=== PATIENT | female | born 1985 | race Hispanic/Latino ===

== ENCOUNTER 2020-12-15 03:31 | Inpatient (IN) | payer MEDICAID, OTHER ==
[2020-12-15] MEDS ORDERED: hydrALAZINE 20 MG/ML VIAL SLOW IVP PRN ×2 (04:02→11:45)
--- NOTE | 2020-12-15 04:02 | PDOC.FPROB ---
FMR OB H&P: HPI - History of Present Illness Chief Complaint: contractions History of Present Illness: 35yo @ 38.5wks who presents with contractions. She states the contractions began around 10pm last night and had increased in intensity and frequency, occurring q3-5min. Denies LOF, vaginal bleeding/discharge/pain. +FM. She is a patient at [facility] and has regular follow up. She was told that her baby was measuring large for age at last ultrasound appointment 3 weeks ago. Primary Care Physician: [facility] FMR OB H&P: Current - Care : 5 Para: 3013 Gestational age: 38.5 Due date: 12/24/20 Course/Complications: none FMR OB H&P: History - Past Medical History PMH: none - OB History OB History: 3 term , hx of macrosomia x2 1 spont ab in Sep 2019 - Surgical History Sx History: none - Social History Social History: no T/A/D - Family History Family History: maternal grandmother- HTN FMR OB H&P: ROS - Review of Systems General: denies: fever/chills, weight/appetite/sleep changes Eyes: denies: vision changes, scotomas ENT: denies: nasal congestion, rhinorrhea Cardiovascular: denies: chest pain, edema Gastrointestinal: denies: nausea, vomiting, diarrhea Genitourinary (Female): reports: contractions. denies: dysuria, vaginal discharge, vaginal bleeding Musculoskeletal: denies: pain Neurologic: denies: syncope, headache Integumentary: denies: itching, rash Hematologic/Lymphatic: denies: prolonged or excessive bleeding FMR OB H&P: Vital Signs - Maternal Vital signs: 138/91, HR 96 - Heart Tones Baseline: 150 Variability: moderate Acceleration: absent Deceleration: absent Category: category 1 [place] contractions every: 5min FMR OB H&P: Physical Exam - Physical Exam General: NAD, awake, alert and oriented HEENT: normocephalic and atraumatic, grossly normal vision, grossly normal hearing Neck: supple, FROM, trachea midline Heart: RRR, normal S1/S2, no murmurs/rubs/gallops, pulses present, no edema General: CTAB, no respiratory distress Abdomen: soft, gravid, non-tender Musculoskeletal: normal gait and station, FROM in all four extremities, no atrophy Neurological: no focal deficit Skin: no rash, capillary refill <2 seconds Lymphatic: no unusual bruising or bleeding Psychiatric: intact recent and remote memory, good judgement and insight, normal mood and affect - Pelvic Exam SVE: FMR OB H&P: A/P Discussion: Date/Time: 12/15/20 0402 35yo @ 38.5wks presents with contractions #Labor #sIUP -FHT: Cat 1, 150/mod kenyon. Ctx q5min -SVE -BP 138/91, no hx of pre-E or gHTN according to pt but records not available at this time -due to elevated BP and AMA will admit -will recheck in 2 hours and decide if can start pitocin -pt is resistant to being induced but after discussion with Dr Mccloud, she agreed with plan #hx of macrosomiax2 -no hx of GDM -pending US for EFW and presentation #AMA -aware PCP: PNC Dispo: admit to L&D, pending US This H&P was discussed with Dr. Mccloud who agrees with the above documentation and plan.
[2020-12-15] MEDS ORDERED: Misoprostol 200 MCG TAB PR PRN (04:34)
[2020-12-15] MEDS ORDERED: Ibuprofen 800 MG TAB PO PRN ×2 (04:34→21:14)
[2020-12-15] MEDS ORDERED: Lidocaine 1% (PF) 30 ML VIAL SC PRN (04:34)
[2020-12-15] MEDS ORDERED: Butorphanol Tartrate 1 MG/ML VIAL SLOW IVP PRN (04:34)
[2020-12-15] MEDS ORDERED: Carboprost 250 MCG/ML AMP IM PRN (04:34)
[2020-12-15] MEDS ORDERED: Acetaminophen 500 MG TAB PO PRN ×2 (04:34→21:14)
[2020-12-15] MEDS ORDERED: Methylergonovine 0.2 MG/ML VIAL IM PRN (04:34)
[2020-12-15] MEDS ORDERED: Ondansetron PF 4 MG/2 ML Vial IVP PRN (04:34)
[2020-12-15] MEDS ORDERED: Lactated Ringer's 1,000 ML IV SCH (04:45)
--- NOTE | 2020-12-15 05:04 | HP ---
TIME: 0425 hours. LOCATION: Labor and Delivery Triage. The patient of the clinic. The patient first seen by Lalitha Hernandez, who is a resident blocking machine operator second. CHIEF COMPLAINT: Possible contractions at 38 weeks and 5 days. HISTORY OF PRESENT ILLNESS: This is a 35-year-old, G5, P3-0-1-3 at 38 weeks and 5 days with a complaint of irregular contractions since around 10:00 p.m. She has contractions about every 3 to 5 minutes, but denies any vaginal bleeding or leakage of fluid. She has good movement. She denies any complications; although, she does state that her past pregnancies had large babies without any complication and she denies any history of gestational diabetes. REVIEW OF SYSTEMS: Complete review of systems was checked and is otherwise negative unless specified in the HPI. GENERAL: No fever. No chills. PULMONARY: No shortness of breath. CARDIOVASCULAR: No chest pain. EXTREMITIES: No unusual leg swelling or calf pain. PAST MEDICAL HISTORY: Negative. MEDICATIONS: vitamins. ALLERGIES: NONE. PAST SURGICAL HISTORY: None. OB HISTORY: She has a history of term vaginal deliveries with some babies being macrosomic, but no problem with deliveries. She denies gestational diabetes then or now. SOCIAL HISTORY: Negative for alcohol, tobacco, or drug use. PHYSICAL EXAMINATION: VITAL SIGNS: Reviewed and reveal respirations 18 that are unlabored, blood pressure is 138/91, and heart rate 96. GENERAL: She is in no acute distress. ABDOMEN: Soft and nontender and size consistent with dates. Cervical exam is 2 cm, 50% effaced, -3 station. Bag of water is intact. monitor, heart tones show a baseline of 150 with moderate variability. Contractions are about every 5 minutes on tocodynamometer. ASSESSMENT: This is a 35-year-old (advanced maternal age) multigravida with a history of macrosomia at early term at 38 weeks and 5 days. Her first blood pressure was 138/91. PLAN: 1. 38 weeks and 5 days with elevated blood pressure, we will keep an augment if necessary. 2. Check PIH labs. 3. History of large babies without dystocia history. 4. Case reviewed with Lalitha Hernandez. 5. The patient seen at bedside. Job ID: [id number]
[2020-12-15 05:21] VITALS: BMI 32.0
--- NOTE | 2020-12-15 05:59 | PDOC.BPN ---
- Brief Progress Note Pt is refusing blood work. We are attempting to work her up for possible pre- eclampsia. She is also refusing IVF and any induction agents. The plan is to recheck her at 0630 to see if she has made any change. I discussed with her the possibility that if there is no change we would move forward with the induction. Both Dr Mccloud and myself explained to her why we would recommend her staying and being induced. She voices understanding and says she is willing to stay but then says she is not willing to allow induction agents. After lengthy discussion, she says she will think about it and make her decision when she is checked at 0630 on whether or not she will stay.
[2020-12-15] MEDS ORDERED: NS w/ Oxytocin 30 units 500 ML IV PRN (06:07)
[2020-12-15 07:26] LABS: Creatinine, Urine 69.3 mg/dL (47-110)
--- NOTE | 2020-12-15 07:49 | ULT ---
ULTRASOUND OBSTETRICAL COMPLETE: DATE: 12/15/2020 HISTORY: 35-year-old female in third trimester experiencing labor contractions. Requested informatio n: presentation and estimated weight. FINDINGS: Maternal adnexa: Not visualized number: shin lie: Vertex Maternal cervix: Obscured. Placenta: Anterior. No placenta previa. Amniotic fluid volume: JULISA = 17cm heart rate: 157 bpm anatomy not evaluated biometry: Biparietal diameter (BPD): 9.0 cm 36 w 2 d Head circumference (HC): 33.3 cm 38 w 0 d Abdominal circumference (AC): 36.7 cm 40 w 4 d Femur length (FL): 7.4 cm 38 w 0 d Average ultrasound age (AUA): 38 w 2 d Estimated date of delivery (FABIOLA): 12/27/2020 Estimated weight (EFW): 3707 g +/- 549 g IMPRESSION: 1) Live 3rd trimester intrauterine gestation. 2) Estimated gestational age of 38 weeks, 2 days 3) Vertex lie.
[2020-12-15 08:00] LABS: #Eosinphils 0.1 thou/uL (0.0-0.7); #Lymphocytes 1.4 thou/uL (1.20-3.40); #Monocytes 0.5 thou/uL (0.11-0.59); %Basophils 0.2 % (0.0-1.0); %Eosinophils 1.2 % (0.0-10.0); %Lymphocytes 14.2 % (21.0-51.0); %Monocytes 5.4 % (0.0-10.0); Hemoglobin 10.9 g/dL (12.0-16.0); Mean Corpuscular HGB CONC 32.4 g/dL (32.0-36.0); Mean Corpuscular Hemoglobin 25.4 pg (27.0-31.0); Mean Corpuscular Volume 78.2 fL (78.0-98.0); Mean Platelet Volume 8.7 fL (7.4-10.4); Platelet Count 328 thou/uL (130-400); RBC Distribution Width 14.7 % (11.5-14.5); Red Blood Cell (RBC) Count 4.31 mill/uL (4.20-5.40); White Blood Cell (WBC) Count 10.2 thou/uL (4.8-10.8)
[2020-12-15 08:23] LABS: ALT (SGPT) 10 U/L (8-55); AST (SGOT) 19 U/L (5-34); Albumin 3.3 g/dL (3.5-5.0); Alkaline Phosphatase 308 U/L (40-110); Anion Gap 14 mmol/L (10-20); BUN (Urea Nitrogen) 8 mg/dL (7.0-18.7); Bilirubin, Total 0.3 mg/dL (0.2-1.2); Calc. Creatinine Clearance 179 mL/min (70-130); Calcium 8.5 mg/dL (7.8-10.44); Carbon Dioxide 19 mmol/L (22-29); Chloride 107 mmol/L (98-107); Globulin 4.2 g/dL (2.4-3.5); Glucose 95 mg/dL (70-105); Potassium 4.1 mmol/L (3.5-5.1); Protein, Total 7.5 g/dL (6.0-8.3); Sodium 136 mmol/L (136-145)
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
[2020-12-15 08:41] LABS: Syphilis Antibody Nonreactive (Nonreactive); Syphilis Antibody Index 0.03 S/CO (<1.00 Non-Reactive)
[2020-12-15 08:42] LABS: HBSAg Index 0.19 S/CO (0-0.99); Hep B Surf Ag Non-Reactive S/CO (NonReactive)
[2020-12-15] MEDS ORDERED: Oxytocin 10 UNITS/ML VIAL ONE (09:20)
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
--- NOTE | 2020-12-15 11:28 | PDOC.OPDEL ---
OB Operative/Delivery Note Delivery Dr/Surgeon: Sujata Pre-Delivery Diagnosis: active labor Procedure/Post Delivery Dx: spontaneous vaginal delivery Anesthesia: none - Additional Findings/Plan Compilations/Other Findings: Delivering Physician: Sujata Attending: Mehnaz Procedure: Spontaneous Vaginal Delivery Anesthesia: Local for Repair QBL: 350 ml Pre-op Diagnosis: 1. Term intrauterine in labor 2. Hx of macrosomia 3. AMA Post-op Diagnosis: 1. Term intrauterine , delivered 2. same as above Indications: A 35 y/o female presents in active labor. Delivery Note: This is 35 yo F @ 38.5 wks who delivered a viable M infant at 1052. Following an uneventful antepartum course, a vigorous male was delivered over an intact perineum in the occipitoanterior position. Anterior S [place] and then remainder of the body delivered. Nuchal cord x 1. The head was held down and mouth and nares were bulb suctioned. Cord clamped after delayed cord clamping and cut. Placenta delivered intact Real presentation with a 3 vessel cord noted. Fundal massage was performed and the fundus was firm. The cervix and vagina were inspected and found to have a superficial laceration of the perineum repaired in the usual fashion with good approximation and hemostasis after a local anesthetic lidocaine was injected at site. went to nursery in good condition for routine care. Apgars were 7/9 at 1 & 5 minutes, respectively. Patient tolerated delivery well and went to after routine recovery/care. B. Sherrig, DO, PGY-1 Post delivery plan: routine recovery
[2020-12-15] MEDS ORDERED: Bisacodyl 10 MG SUPP PR PRN (11:45)
[2020-12-15] MEDS ORDERED: Lanolin Ointment 7 GM TUBE TOP PRN (11:45)
[2020-12-15] MEDS ORDERED: Milk Of Magnesia 30 ML UDCUP PO PRN (11:45)
[2020-12-15] MEDS: Ferrous Sulfate 325 MG TAB PO SCH (16:32)
[2020-12-15] MEDS: Docusate Calcium (SURFAK) 240 MG CAP PO SCH (21:06)
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
[2020-12-16 08:00] VITALS: BP 113/59; TEMP 98.3
[2020-12-16] MEDS: Ferrous Sulfate 325 MG TAB PO SCH (08:19)
[2020-12-16] MEDS: Docusate Calcium (SURFAK) 240 MG CAP PO SCH (08:39)
[2020-12-16] MEDS ORDERED: Adacel (T-DAP) 0.5 ML SYRINGE IM ONE (09:00)
[2020-12-16] MEDS ORDERED: Prenatal Vitamin 1 TAB PO SCH (09:00)
[2020-12-16 15:10] LABS: SARS-CoV-2 PCR NAA for Saliva Not Detected (NotDetected)
== END 2020-12-16 14:15 | disposition home or self-care (01) | DRG 807 ==
LOC: L&D/OP 03:31 → L&D 04:51 → 3SW 13:18
PROVIDERS: ADMIT Obstetrics & Gynecology; ATTEND Obstetrics & Gynecology
PROC: 10E0XZZ Delivery of Products of Conception, External Approach (ICD-10-PCS; principal; 2020-12-15)
PROC: 0HQ9XZZ Repair Perineum Skin, External Approach (ICD-10-PCS; 2020-12-15)
DX: O36.63X0 Maternal care for excessive fetal growth, third trimester, not applicable or unspecified (principal); Z37.0 Single live birth; Z3A.38 38 weeks gestation of pregnancy; O77.0 Labor and delivery complicated by meconium in amniotic fluid; O69.81X0 Labor and delivery complicated by cord around neck, without compression, not applicable or unspecified; O70.0 First degree perineal laceration during delivery; Z20.822 Contact with and (suspected) exposure to COVID-19
CPT/HCPCS: 36415; 76815; 80053; 82570; 84156; 86780; 86850; 86900; 86901; 87340; 87635; 99285; J2001; J2590; U0003; U0005